=== PATIENT | male | born 1990 | race Caucasian/White ===

== ENCOUNTER 2019-03-16 11:14 | Emergency (ER) | payer SELFPAY ==
--- NOTE | 2019-03-16 12:27 | UC ---
Lower Extremity/Ankle HPI - HPI Summary HPI Summary: 28 yo male with right foot/ankle pain x weeks worse past day or two no fever no trauma - History of Current Complaint Stated Complaint: RT ANKLE INJ Time Seen by Provider: 03/16/19 12:19 Hx Obtained From: Patient Onset/Duration: Gradual Onset, Lasting Weeks, Worse Since - 1-2 days Severity Initially: Mild Severity Currently: Mild Pain Intensity: 8 - wt bearing Pain Scale Used: 0-10 Numeric Aggravating Factor(s): Standing, Ambulation Alleviating Factor(s): Rest Able to Bear Weight: Yes Feet (Multiple View): 1 - tender - Allergies/Home Medications Allergies/Adverse Reactions: Allergies Allergy/AdvReac Type Severity Reaction Status Date / Time No Known Allergies Allergy Verified 03/16/19 12:25 PMH/Surg Hx/FS Hx/Imm Hx Previously Healthy: Yes Cardiovascular History: Hypertension Review of Systems All Other Systems Reviewed And Are Negative: Yes Constitutional: Positive: Negative Skin: Positive: Negative Eyes: Positive: Negative ENT: Positive: Negative Respiratory: Positive: Negative Cardiovascular: Positive: Negative Gastrointestinal: Positive: Negative Genitourinary: Positive: Negative Motor: Positive: Negative Neurovascular: Positive: Negative Musculoskeletal: Positive: Arthralgia Psychological: Positive: Negative Physical Exam Triage Information Reviewed: Yes Appearance: Well-Appearing, No Pain Distress, Well-Nourished Eyes: Positive: Conjunctiva Clear, Conjunctiva Inflamed ENT: Positive: Hearing grossly normal. Negative: Nasal congestion, Nasal drainage, Trismus, Muffled voice, Hoarse voice Dental Exam: Normal Neck: Positive: Supple, Nontender, No Lymphadenopathy Respiratory: Positive: Lungs clear, Normal breath sounds, No respiratory distress Cardiovascular: Positive: RRR, No Murmur Musculoskeletal: Positive: Other: - see image Neurological: Positive: Alert Psychological Exam: Normal Skin Exam: Normal Diagnostics - Laboratory Lab Results: FS 95 - Radiology No standard instances Radiology Interpretation Completed By: Radiologist Summary of Radiographic Findings: no fx Lower Extremity Course/Dx - Differential Dx/Diagnosis Provider Diagnosis: Elevated blood pressure reading, Right foot pain Discharge ED - Sign-Out/Discharge Documenting (check all that apply): Patient Departure All imaging exams completed and their final reports reviewed: Yes - Discharge Plan Condition: Stable Disposition: HOME Prescriptions: Irbesartan 150 mg PO DAILY #30 tablet Naproxen [Naproxen 500 mg tab] 500 mg PO BID PRN #20 tablet PRN Reason: Pain Patient Education Materials: Hypertension (ED), Swollen Joint (ED) Referrals: Ronny Menendez MD [Medical Doctor] - As Soon As Possible Alma Delia Jauregui MD [Primary Care Provider] - 2 Weeks Additional Instructions: no fracture noted on XR rest elevate ice - Billing Disposition and Condition Condition: STABLE Disposition: Home
== END 2019-03-16 13:17 | disposition home or self-care (01) ==
LOC: UCCORT 11:14
DX: R03.0 Elevated blood-pressure reading, without diagnosis of hypertension (principal); M79.671 Pain in right foot; I10 Essential (primary) hypertension
CPT/HCPCS: 99203; G0463